=== PATIENT | female | born 1955 | race Two or more races ===

== ENCOUNTER 2017-09-06 09:11 | Outpatient (CLI) | payer BC, OTHER | END 2017-09-06 11:11 | disposition home or self-care (01) | LOC: ECT 09:11 | DX: F33.2 Major depressive disorder, recurrent severe without psychotic features (principal); E03.9 Hypothyroidism, unspecified; M81.0 Age-related osteoporosis without current pathological fracture; Z88.2 Allergy status to sulfonamides ==

== ENCOUNTER 2017-10-07 06:22 | Outpatient (RCR) | payer OTHER ==
[~2017-10-07] VITALS: Ht 165.1 cm; Wt 81.6 kg
[2017-10-07] MEDS ORDERED: Succinylcholine 20mg/ml 10ml vial ONE (06:23)
[2017-10-07] MEDS ORDERED: NS 500ML ONE (06:23)
[2017-10-07] MEDS ORDERED: Ketorolac 60mg Inj ONE (06:23)
[2017-10-07] MEDS ORDERED: Excedrin Migraine tab ONE (06:23)
[2017-10-07] MEDS ORDERED: Methohexital Sodium Syr 100mg/10ml IVP ONE (06:23)
[2017-10-07 08:04] VITALS: BP 136/84
[2017-10-07] MEDS ORDERED: Sodium Chloride 500ML 500 ML IV ONE (08:17)
[2017-10-07] MEDS ORDERED: Excedrin Migraine tab ORAL PRN (08:17)
[2017-10-07 08:20] VITALS: BP 126/64
[2017-10-07 08:25] VITALS: BP 125/62
[2017-10-07 08:30] VITALS: BP 136/72
[2017-10-07 08:35] VITALS: BP 140/74
[2017-10-07 11:14] VITALS: BP 136/84
[2017-10-10] VITALS (7 sets, daily range): BP systolic 117–143; BP diastolic 63–84
[2017-10-10] MEDS ORDERED: NS 500ML ONE (07:00)
[2017-10-10] MEDS ORDERED: Succinylcholine 20mg/ml 10ml vial ONE (07:00)
[2017-10-10] MEDS ORDERED: Excedrin Migraine tab ONE (07:00)
[2017-10-10] MEDS ORDERED: Ketorolac 60mg Inj ONE (07:00)
[2017-10-10] MEDS ORDERED: Methohexital Sodium Syr 100mg/10ml IVP ONE (07:00)
[2017-10-10] MEDS ORDERED: Sodium Chloride 500ML 500 ML IV ONE (09:11)
[2017-10-12] MEDS ORDERED: Excedrin Migraine tab ONE (07:00)
[2017-10-12] MEDS ORDERED: Succinylcholine 20mg/ml 10ml vial ONE (07:00)
[2017-10-12] MEDS ORDERED: Methohexital Sodium Syr 100mg/10ml IVP ONE (07:00)
[2017-10-12] MEDS ORDERED: Ketorolac 60mg Inj ONE (07:00)
[2017-10-12] MEDS ORDERED: NS 500ML ONE (07:00)
[2017-10-12 07:46] VITALS: BP 147/91
[2017-10-12] MEDS ORDERED: Excedrin Migraine tab ORAL PRN (07:58)
[2017-10-12] MEDS ORDERED: Sodium Chloride 500ML 500 ML IV ONE (07:58)
[2017-10-12] MEDS ORDERED: Atropine Sulfate 0.4mg/ml inj IVP PRN (07:58)
[2017-10-12 08:00] VITALS: BP 133/48
[2017-10-12 08:05] VITALS: BP 136/83
[2017-10-12 08:10] VITALS: BP 144/58
[2017-10-17] MEDS ORDERED: Succinylcholine 20mg/ml 10ml vial ONE (06:00)
[2017-10-17] MEDS ORDERED: NS 500ML ONE (06:00)
[2017-10-17] MEDS ORDERED: Methohexital Sodium Syr 100mg/10ml IVP ONE (06:00)
[2017-10-17] MEDS ORDERED: Ketorolac 60mg Inj ONE (06:00)
[2017-10-17] MEDS ORDERED: Excedrin Migraine tab ONE (06:00)
[2017-10-17 07:46] VITALS: BP 151/85
[2017-10-17] MEDS ORDERED: Excedrin Migraine tab ORAL PRN (08:00)
[2017-10-17] MEDS ORDERED: Sodium Chloride 500ML 500 ML IV ONE (08:00)
[2017-10-17 08:05] VITALS: BP 124/62
[2017-10-17 08:10] VITALS: BP 123/55
[2017-10-17 08:15] VITALS: BP 116/38
[2017-10-17 08:20] VITALS: BP 108/46
[2017-10-19] MEDS ORDERED: NS 500ML ONE (07:00)
[2017-10-19] MEDS ORDERED: Succinylcholine 20mg/ml 10ml vial ONE (07:00)
[2017-10-19] MEDS ORDERED: Ketorolac 60mg Inj ONE (07:00)
[2017-10-19] MEDS ORDERED: Excedrin Migraine tab ONE (07:00)
[2017-10-19] MEDS ORDERED: Methohexital Sodium Syr 100mg/10ml IVP ONE (07:00)
[2017-10-19 08:04] VITALS: BP 132/91
[2017-10-19 08:15] VITALS: BP 140/71
[2017-10-19] MEDS ORDERED: Excedrin Migraine tab ORAL PRN (08:19)
[2017-10-19] MEDS ORDERED: Sodium Chloride 500ML 500 ML IV ONE (08:19)
[2017-10-19 08:20] VITALS: BP 148/70
[2017-10-19 08:25] VITALS: BP 150/71
[2017-10-19 08:30] VITALS: BP 150/71
[2017-10-19 08:35] VITALS: BP 150/70
[2017-10-21] MEDS ORDERED: Methohexital Sodium Syr 100mg/10ml IVP ONE (07:00)
[2017-10-21] MEDS ORDERED: Succinylcholine 20mg/ml 10ml vial ONE (07:00)
[2017-10-21] MEDS ORDERED: Excedrin Migraine tab ONE (07:00)
[2017-10-21] MEDS ORDERED: Ketorolac 60mg Inj ONE (07:00)
[2017-10-21] MEDS ORDERED: NS 500ML ONE (07:00)
[2017-10-21 08:03] VITALS: BP 137/82
[2017-10-21] MEDS ORDERED: Excedrin Migraine tab ORAL PRN (08:17)
[2017-10-21] MEDS ORDERED: Sodium Chloride 500ML 500 ML IV ONE (08:17)
[2017-10-21 08:20] VITALS: BP 127/66
[2017-10-21 08:25] VITALS: BP 130/64
[2017-10-21 08:30] VITALS: BP 128/63
[2017-10-21 08:35] VITALS: BP 141/53
[2017-10-24 07:36] VITALS: BP 138/87
[2017-10-24 07:52] VITALS: BP 137/87
[2017-10-24] MEDS ORDERED: Excedrin Migraine tab ORAL PRN (07:52)
[2017-10-24] MEDS ORDERED: Sodium Chloride 500ML 500 ML IV ONE (07:52)
[2017-10-24 07:57] VITALS: BP 122/86
[2017-10-24] MEDS ORDERED: Methohexital Sodium Syr 100mg/10ml IVP ONE (08:00)
[2017-10-24] MEDS ORDERED: Ketorolac 60mg Inj ONE (08:00)
[2017-10-24] MEDS ORDERED: Succinylcholine 20mg/ml 10ml vial ONE (08:00)
[2017-10-24] MEDS ORDERED: Excedrin Migraine tab ONE (08:00)
[2017-10-24] MEDS ORDERED: NS 500ML ONE (08:00)
[2017-10-24 08:02] VITALS: BP 139/67
[2017-10-24 08:07] VITALS: BP 127/65
[2017-10-26] MEDS ORDERED: Ketorolac 60mg Inj ONE (06:00)
[2017-10-26] MEDS ORDERED: Methohexital Sodium Syr 100mg/10ml IVP ONE (06:00)
[2017-10-26] MEDS ORDERED: Succinylcholine 20mg/ml 10ml vial ONE (06:00)
[2017-10-26] MEDS ORDERED: Excedrin Migraine tab ONE (06:00)
[2017-10-26 07:18] VITALS: BP 142/76
[2017-10-26] MEDS ORDERED: Excedrin Migraine tab ORAL PRN (07:30)
[2017-10-26] MEDS ORDERED: Sodium Chloride 500ML 500 ML IV ONE (07:30)
[2017-10-26 07:35] VITALS: BP 116/56
[2017-10-26 07:40] VITALS: BP 116/56
[2017-10-26 07:45] VITALS: BP 122/61
[2017-10-26 07:50] VITALS: BP 112/86
[2017-10-28] MEDS ORDERED: Methohexital Sodium Syr 100mg/10ml IVP ONE (08:00)
[2017-10-28] MEDS ORDERED: Ketorolac 60mg Inj ONE (08:00)
[2017-10-28] MEDS ORDERED: NS 500ML ONE (08:00)
[2017-10-28] MEDS ORDERED: Excedrin Migraine tab ONE (08:00)
[2017-10-28] MEDS ORDERED: Succinylcholine 20mg/ml 10ml vial ONE (08:00)
[2017-10-28 08:03] VITALS: BP 136/77
[2017-10-28] MEDS ORDERED: Excedrin Migraine tab ORAL PRN (08:18)
[2017-10-28] MEDS ORDERED: Sodium Chloride 500ML 500 ML IV ONE (08:18)
[2017-10-28 08:20] VITALS: BP 132/80
[2017-10-28 08:25] VITALS: BP 118/77
[2017-10-28 08:30] VITALS: BP 135/54
[2017-10-28 08:35] VITALS: BP 126/56
== END 2017-11-02 | disposition home or self-care (01) ==
LOC: ECT 06:22
DX: F33.2 Major depressive disorder, recurrent severe without psychotic features (principal); E03.9 Hypothyroidism, unspecified; M81.0 Age-related osteoporosis without current pathological fracture
CPT/HCPCS: 90870; J0330; J7040

== ENCOUNTER 2017-11-04 05:05 | Outpatient (RCR) | payer OTHER ==
[~2017-11-04] VITALS: Ht 165.1 cm; Wt 81.6 kg
[2017-11-04] MEDS ORDERED: Ketorolac 60mg Inj ONE (05:06)
[2017-11-04] MEDS ORDERED: Excedrin Migraine tab ONE (05:06)
[2017-11-04] MEDS ORDERED: NS 500ML ONE (05:06)
[2017-11-04] MEDS ORDERED: Succinylcholine 20mg/ml 10ml vial ONE (05:06)
[2017-11-04] MEDS ORDERED: Midazolam 2mg/2ml Inj ONE (05:06)
[2017-11-04 07:40] VITALS: BP 129/78
[2017-11-04] MEDS ORDERED: Atropine Sulfate 0.4mg/ml inj IVP PRN (08:03)
[2017-11-04] MEDS ORDERED: Sodium Chloride 500ML 500 ML IV ONE (08:03)
[2017-11-04] MEDS ORDERED: Excedrin Migraine tab ORAL PRN (08:03)
[2017-11-04 08:05] VITALS: BP 103/38
[2017-11-04 08:10] VITALS: BP 107/46
[2017-11-04 08:15] VITALS: BP 119/63
[2017-11-04 08:20] VITALS: BP 119/63
[2017-11-04 08:25] VITALS: BP 124/69
[2017-11-09] MEDS ORDERED: Excedrin Migraine tab ONE (07:00)
[2017-11-09] MEDS ORDERED: Methohexital Sodium Syr 100mg/10ml IVP ONE (07:00)
[2017-11-09] MEDS ORDERED: Ketorolac 60mg Inj ONE (07:00)
[2017-11-09] MEDS ORDERED: NS 500ML ONE (07:00)
[2017-11-09] MEDS ORDERED: Succinylcholine 20mg/ml 10ml vial ONE (07:00)
[2017-11-09] MEDS ORDERED: Midazolam 2mg/2ml Inj ONE (07:00)
[2017-11-09] MEDS ORDERED: Sodium Chloride 500ML 500 ML IV ONE (08:06)
[2017-11-09] MEDS ORDERED: Excedrin Migraine tab ORAL PRN (08:06)
[2017-11-09 08:10] VITALS: BP 104/56
[2017-11-09 08:15] VITALS: BP 105/49
[2017-11-09 08:20] VITALS: BP 102/54
[2017-11-09 08:25] VITALS: BP 103/54
[2017-11-09 08:35] VITALS: BP 130/62
[2017-11-18] MEDS ORDERED: NS 500ML ONE (07:00)
[2017-11-18] MEDS ORDERED: Methohexital Sodium Syr 100mg/10ml IVP ONE (07:00)
[2017-11-18] MEDS ORDERED: Succinylcholine 20mg/ml 10ml vial ONE (07:00)
[2017-11-18] MEDS ORDERED: Excedrin Migraine tab ONE (07:00)
[2017-11-18] MEDS ORDERED: Ketorolac 60mg Inj ONE (07:00)
[2017-11-18] MEDS ORDERED: Midazolam 2mg/2ml Inj ONE (07:00)
[2017-11-18 07:42] VITALS: BP 140/99
[2017-11-18] MEDS ORDERED: Excedrin Migraine tab ORAL PRN (07:59)
[2017-11-18] MEDS ORDERED: Sodium Chloride 500ML 500 ML IV ONE (07:59)
[2017-11-18 08:00] VITALS: BP 114/67
[2017-11-18 08:05] VITALS: BP 115/63
[2017-11-18 08:10] VITALS: BP 112/62
[2017-11-18 08:15] VITALS: BP 116/62
[2017-11-18 08:20] VITALS: BP 108/55
[2017-11-30] MEDS ORDERED: Methohexital Sodium Syr 100mg/10ml IVP ONE (08:00)
[2017-11-30] MEDS ORDERED: Midazolam 2mg/2ml Inj ONE (08:00)
[2017-11-30] MEDS ORDERED: Excedrin Migraine tab ONE (08:00)
[2017-11-30] MEDS ORDERED: Succinylcholine 20mg/ml 10ml vial ONE (08:00)
[2017-11-30] MEDS ORDERED: Ketorolac 60mg Inj ONE (08:00)
[2017-11-30] MEDS ORDERED: NS 500ML ONE (08:00)
[2017-11-30 08:45] VITALS: BP 126/84
[2017-11-30] MEDS ORDERED: Sodium Chloride 500ML 500 ML IV ONE (09:06)
[2017-11-30 09:10] VITALS: BP 111/63
[2017-11-30 09:15] VITALS: BP 116/50
[2017-11-30 09:20] VITALS: BP 108/66
[2017-11-30 09:25] VITALS: BP 138/61
== END 2017-12-03 | disposition home or self-care (01) ==
LOC: ECT 05:05
DX: F33.2 Major depressive disorder, recurrent severe without psychotic features (principal)
CPT/HCPCS: 90870; J0330; J2250; J7040

== ENCOUNTER 2017-12-19 07:00 | Outpatient (RCR) | payer OTHER ==
[~2017-12-19] VITALS: Ht 165.1 cm; Wt 81.6 kg
[2017-12-19] MEDS ORDERED: Succinylcholine 20mg/ml 10ml vial ONE (07:01)
[2017-12-19] MEDS ORDERED: Midazolam 2mg/2ml Inj ONE (07:01)
[2017-12-19] MEDS ORDERED: Excedrin Migraine tab ONE (07:01)
[2017-12-19] MEDS ORDERED: Ketorolac 60mg Inj ONE (07:01)
[2017-12-19] MEDS ORDERED: NS 500ML ONE (07:01)
[2017-12-19] MEDS ORDERED: Methohexital Sodium Syr 100mg/10ml IVP ONE (07:01)
[2017-12-21] MEDS ORDERED: NS 500ML ONE (07:00)
[2017-12-21] MEDS ORDERED: Succinylcholine 20mg/ml 10ml vial ONE (07:00)
[2017-12-21] MEDS ORDERED: Ketorolac 60mg Inj ONE (07:00)
[2017-12-21] MEDS ORDERED: Methohexital Sodium Syr 100mg/10ml IVP ONE (07:00)
[2017-12-21] MEDS ORDERED: Excedrin Migraine tab ONE (07:00)
[2017-12-21] MEDS ORDERED: Midazolam 2mg/2ml Inj ONE (07:00)
[2017-12-21 07:52] VITALS: BP 153/90
[2017-12-21] MEDS ORDERED: Sodium Chloride 500ML 500 ML IV ONE (08:09)
[2017-12-21] MEDS ORDERED: Excedrin Migraine tab ORAL PRN (08:09)
[2017-12-21 08:10] VITALS: BP 119/64
[2017-12-21 08:15] VITALS: BP 126/64
[2017-12-21 08:20] VITALS: BP 116/57
[2017-12-21 08:25] VITALS: BP 127/79
[2017-12-23 08:52] VITALS: BP 138/92
[2017-12-23 09:13] VITALS: BP 120/59
[2017-12-23] MEDS ORDERED: Sodium Chloride 500ML 500 ML IV ONE (09:13)
[2017-12-23] MEDS ORDERED: Excedrin Migraine tab ORAL PRN (09:13)
[2017-12-23] MEDS ORDERED: Atropine Sulfate 0.4mg/ml inj IVP PRN (09:13)
[2017-12-23 09:18] VITALS: BP 113/63
[2017-12-23 09:23] VITALS: BP 112/60
[2017-12-23 09:28] VITALS: BP 112/65
[2017-12-28 07:57] VITALS: BP 145/84
[2017-12-28] MEDS ORDERED: NS 500ML ONE (08:00)
[2017-12-28] MEDS ORDERED: Ketorolac 60mg Inj ONE (08:00)
[2017-12-28] MEDS ORDERED: Excedrin Migraine tab ONE (08:00)
[2017-12-28] MEDS ORDERED: Succinylcholine 20mg/ml 10ml vial ONE (08:00)
[2017-12-28] MEDS ORDERED: Midazolam 2mg/2ml Inj ONE (08:00)
[2017-12-28] MEDS ORDERED: Methohexital Sodium Syr 100mg/10ml IVP ONE (08:00)
[2017-12-28] MEDS ORDERED: Sodium Chloride 500ML 500 ML IV ONE (08:12)
[2017-12-28] MEDS ORDERED: Excedrin Migraine tab ORAL PRN (08:12)
[2017-12-28 08:15] VITALS: BP 115/48
[2017-12-28 08:20] VITALS: BP 115/48
[2017-12-28 08:25] VITALS: BP 115/48
[2017-12-28 08:30] VITALS: BP 127/80
[2017-12-28 08:35] VITALS: BP 151/80
== END 2018-01-02 | disposition home or self-care (01) ==
LOC: ECT 07:00
DX: F33.2 Major depressive disorder, recurrent severe without psychotic features (principal)
CPT/HCPCS: 90870; J0330; J2250; J7040

== ENCOUNTER 2018-01-09 07:01 | Outpatient (RCR) | payer OTHER ==
[~2018-01-09] VITALS: Ht 165.1 cm; Wt 81.8 kg
[2018-01-09] MEDS ORDERED: Succinylcholine 20mg/ml 10ml vial ONE ×2 (07:02)
[2018-01-09] MEDS ORDERED: Ketorolac 60mg Inj ONE ×2 (07:02)
[2018-01-09] MEDS ORDERED: Methohexital Sodium Syr 100mg/10ml IVP ONE (07:02)
[2018-01-09] MEDS ORDERED: Midazolam 2mg/2ml Inj ONE ×2 (07:02)
[2018-01-09] MEDS ORDERED: Excedrin Migraine tab ONE ×2 (07:02)
[2018-01-09] MEDS ORDERED: Methohexital Sodium 500mg Vial IVP ONE (07:02)
[2018-01-09] MEDS ORDERED: NS 500ML ONE ×2 (07:02)
[2018-01-09 07:35] VITALS: BP 143/85
[2018-01-09] MEDS ORDERED: Sodium Chloride 500ML 500 ML IV ONE (07:51)
[2018-01-09] MEDS ORDERED: Excedrin Migraine tab ORAL PRN (07:51)
[2018-01-09 07:55] VITALS: BP 105/60
[2018-01-09 08:00] VITALS: BP 103/59
[2018-01-09 08:05] VITALS: BP 107/62
[2018-01-09 08:10] VITALS: BP 110/54
[2018-01-25 07:38] VITALS: BP 133/90
[2018-01-25 08:03] VITALS: BP 87/70
[2018-01-25] MEDS ORDERED: Atropine Sulfate 0.4mg/ml inj IVP PRN (08:03)
[2018-01-25] MEDS ORDERED: Sodium Chloride 500ML 500 ML IV ONE (08:03)
[2018-01-25 08:08] VITALS: BP 95/53
[2018-01-25 08:13] VITALS: BP 86/50
[2018-01-25 08:18] VITALS: BP 94/57
[2018-01-25 08:23] VITALS: BP 101/54
[2018-02-01] MEDS ORDERED: Midazolam 2mg/2ml Inj ONE (07:00)
[2018-02-01] MEDS ORDERED: Methohexital Sodium Syr 100mg/10ml IVP ONE (07:00)
[2018-02-01] MEDS ORDERED: Excedrin Migraine tab ONE (07:00)
[2018-02-01] MEDS ORDERED: Succinylcholine 20mg/ml 10ml vial ONE (07:00)
[2018-02-01] MEDS ORDERED: Ketorolac 60mg Inj ONE (07:00)
[2018-02-01] MEDS ORDERED: NS 500ML ONE (07:00)
[2018-02-01 07:01] VITALS: BP 146/83
[2018-02-01] MEDS ORDERED: Excedrin Migraine tab ORAL PRN (07:16)
[2018-02-01] MEDS ORDERED: Sodium Chloride 500ML 500 ML IV ONE (07:16)
[2018-02-01 07:20] VITALS: BP 102/44
[2018-02-01 07:25] VITALS: BP 93/58
[2018-02-01 07:30] VITALS: BP 92/49
[2018-02-01 07:35] VITALS: BP 113/44
== END 2018-02-02 | disposition home or self-care (01) ==
LOC: ECT 07:01
DX: F33.2 Major depressive disorder, recurrent severe without psychotic features (principal)
CPT/HCPCS: 90870; J0330; J2250; J3490; J7040

== ENCOUNTER 2018-02-13 07:53 | Outpatient (RCR) | payer OTHER ==
[~2018-02-13] VITALS: Ht 165.1 cm; Wt 81.8 kg
[2018-02-13 07:29] VITALS: BP 119/81
[2018-02-13 07:50] VITALS: BP 101/56
[~2018-02-13 07:53] MED LIST: Atropine Sulfate 0.4mg/ml inj IVP PRN; Excedrin Migraine tab ORAL PRN; Sodium Chloride 500ML 500 ML IV ONE
[2018-02-13] MEDS ORDERED: Methohexital Sodium Syr 100mg/10ml IVP ONE (07:54)
[2018-02-13] MEDS ORDERED: Ketorolac 60mg Inj ONE (07:54)
[2018-02-13] MEDS ORDERED: NS 500ML ONE (07:54)
[2018-02-13] MEDS ORDERED: Midazolam 2mg/2ml Inj ONE (07:54)
[2018-02-13] MEDS ORDERED: Succinylcholine 20mg/ml 10ml vial ONE (07:54)
[2018-02-13] MEDS ORDERED: Excedrin Migraine tab ONE (07:54)
[2018-02-13 07:55] VITALS: BP 116/56
[2018-02-13 08:00] VITALS: BP 130/36
[2018-02-13 08:05] VITALS: BP 104/54
== END 2018-03-04 | disposition home or self-care (01) ==
LOC: ECT 07:53
DX: F33.2 Major depressive disorder, recurrent severe without psychotic features (principal)
CPT/HCPCS: 90870; J0330; J2250; J7040

== ENCOUNTER 2018-03-13 05:35 | Outpatient (RCR) | payer OTHER ==
[~2018-03-13] VITALS: Ht 165.1 cm; Wt 81.6 kg
[2018-03-15] MEDS ORDERED: Midazolam 2mg/2ml Inj ONE (06:00)
[2018-03-15] MEDS ORDERED: NS 500ML ONE (06:00)
[2018-03-15] MEDS ORDERED: Ketorolac 60mg Inj ONE (06:00)
[2018-03-15] MEDS ORDERED: Excedrin Migraine tab ONE (06:00)
[2018-03-15] MEDS ORDERED: Succinylcholine 20mg/ml 10ml vial ONE (06:00)
[2018-03-15] MEDS ORDERED: Excedrin Migraine tab ORAL PRN (07:46)
[2018-03-15] MEDS ORDERED: Sodium Chloride 500ML 500 ML IV ONE (07:46)
[2018-03-15 07:50] VITALS: BP 107/49
[2018-03-15 07:55] VITALS: BP 106/56
[2018-03-15 08:00] VITALS: BP 113/58
[2018-03-15 08:05] VITALS: BP 121/72
[2018-03-15 08:13] VITALS: BP 123/72
[2018-03-20] MEDS ORDERED: Norco 5mg/325mg tab ONE (08:00)
[2018-03-20] MEDS ORDERED: Succinylcholine 20mg/ml 10ml vial ONE (08:00)
[2018-03-20] MEDS ORDERED: NS 500ML ONE (08:00)
[2018-03-20] MEDS ORDERED: Methohexital Sodium Syr 100mg/10ml IVP ONE (08:00)
== END 2018-04-04 | disposition home or self-care (01) ==
LOC: ECT 05:35
DX: F33.2 Major depressive disorder, recurrent severe without psychotic features (principal)
CPT/HCPCS: 90870; J0330; J2250; J3360; J7040

== ENCOUNTER 2018-04-10 05:23 | Outpatient (RCR) | payer OTHER ==
[~2018-04-10] VITALS: Ht 30.5 cm; Wt 0.5 kg
[2018-04-10] MEDS ORDERED: Methohexital Sodium Syr 100mg/10ml IVP ONE (05:24)
[2018-04-10] MEDS ORDERED: NS 500ML ONE (05:24)
[2018-04-10] MEDS ORDERED: Midazolam 2mg/2ml Inj ONE (05:24)
[2018-04-10] MEDS ORDERED: Succinylcholine 20mg/ml 10ml vial ONE (05:24)
[2018-04-10] MEDS ORDERED: Excedrin Migraine tab ONE (05:24)
[2018-04-10] MEDS ORDERED: Ketorolac 60mg Inj ONE (05:24)
[2018-04-10 07:59] VITALS: BP 148/81
[2018-04-10] MEDS ORDERED: Excedrin Migraine tab ORAL PRN (08:28)
[2018-04-10] MEDS ORDERED: Sodium Chloride 500ML 500 ML IV ONE (08:28)
[2018-04-10] MEDS ORDERED: Atropine Sulfate 0.4mg/ml inj IVP PRN (08:28)
[2018-04-10 08:30] VITALS: BP 103/57
[2018-04-10 08:35] VITALS: BP 107/51
[2018-04-10 08:40] VITALS: BP 113/41
[2018-04-10 08:45] VITALS: BP 103/55
== END 2018-05-05 | disposition home or self-care (01) ==
LOC: ECT 05:23
DX: F33.2 Major depressive disorder, recurrent severe without psychotic features (principal)
CPT/HCPCS: 90870; J0330; J2250; J7040

== ENCOUNTER 2018-05-10 06:48 | Outpatient (RCR) | payer OTHER ==
[~2018-05-10] VITALS: Ht 31.5 cm; Wt 0.5 kg
[2018-05-10] MEDS ORDERED: Excedrin Migraine tab ONE (06:49)
[2018-05-10] MEDS ORDERED: NS 500ML ONE (06:49)
[2018-05-10] MEDS ORDERED: Ketorolac 60mg Inj IM ONE (06:49)
[2018-05-10] MEDS ORDERED: Succinylcholine 20mg/ml 10ml vial ONE (06:49)
[2018-05-10] MEDS ORDERED: Midazolam 2mg/2ml Inj ONE (06:49)
[2018-05-10] MEDS ORDERED: Methohexital Sodium Syr 100mg/10ml IVP ONE (06:49)
[2018-05-10 07:43] VITALS: BP 146/86
[2018-05-10] MEDS ORDERED: Sodium Chloride 500ML 500 ML IV ONE (08:04)
[2018-05-10] MEDS ORDERED: Excedrin Migraine tab ORAL PRN (08:04)
[2018-05-10 08:05] VITALS: BP 133/66
[2018-05-10 08:10] VITALS: BP 121/69
[2018-05-10 08:15] VITALS: BP 128/70
[2018-05-10 08:20] VITALS: BP 131/86
== END 2018-06-04 | disposition home or self-care (01) ==
LOC: ECT 06:48
DX: F33.2 Major depressive disorder, recurrent severe without psychotic features (principal)
CPT/HCPCS: 90870; J0330; J2250; J7040

== ENCOUNTER 2018-06-07 06:25 | Outpatient (RCR) | payer OTHER ==
[~2018-06-07] VITALS: Ht 30.5 cm; Wt 0.5 kg
[2018-06-07] MEDS ORDERED: Midazolam 2mg/2ml Inj ONE (06:26)
[2018-06-07] MEDS ORDERED: NS 500ML ONE (06:26)
[2018-06-07] MEDS ORDERED: Excedrin Migraine tab ONE (06:26)
[2018-06-07] MEDS ORDERED: Ketorolac 60mg Inj IM ONE (06:26)
[2018-06-07] MEDS ORDERED: Methohexital Sodium Syr 100mg/10ml IVP ONE (06:26)
[2018-06-07] MEDS ORDERED: Succinylcholine 20mg/ml 10ml vial ONE (06:26)
[2018-06-07 07:33] VITALS: BP 150/95
[2018-06-07] MEDS ORDERED: Excedrin Migraine tab ORAL PRN (07:49)
[2018-06-07] MEDS ORDERED: Sodium Chloride 500ML 500 ML IV ONE (07:49)
[2018-06-07 07:50] VITALS: BP 123/62
[2018-06-07 07:55] VITALS: BP 127/79
[2018-06-07 08:00] VITALS: BP 134/101
[2018-06-07 08:05] VITALS: BP 137/92
== END 2018-07-05 | disposition home or self-care (01) ==
LOC: ECT 06:25
DX: F33.2 Major depressive disorder, recurrent severe without psychotic features (principal)
CPT/HCPCS: 90870; J0330; J2250; J7040

== ENCOUNTER 2018-07-07 04:42 | Outpatient (RCR) | payer OTHER ==
[~2018-07-07] VITALS: Ht 30.5 cm; Wt 0.5 kg
[2018-07-07] MEDS ORDERED: Excedrin tab (non formulary) ONE (04:43)
[2018-07-07] MEDS ORDERED: Succinylcholine 20mg/ml 10ml vial ONE (04:43)
[2018-07-07] MEDS ORDERED: Midazolam 2mg/2ml Inj ONE (04:43)
[2018-07-07] MEDS ORDERED: NS 500ML ONE (04:43)
[2018-07-07] MEDS ORDERED: Ketorolac 60mg Inj IM ONE (04:43)
[2018-07-07] MEDS ORDERED: Methohexital Sodium 500mg Vial IVP ONE (04:43)
[2018-07-07 07:32] VITALS: BP 143/51
[2018-07-07] MEDS ORDERED: Sodium Chloride 500ML 500 ML IV ONE (08:03)
[2018-07-07] MEDS ORDERED: Excedrin Migraine tab ORAL PRN (08:03)
[2018-07-07] MEDS ORDERED: Atropine Sulfate 0.4mg/ml inj IVP PRN (08:03)
[2018-07-07 08:05] VITALS: BP 92/53
[2018-07-07 08:10] VITALS: BP 92/53
[2018-07-07 08:15] VITALS: BP 100/49
[2018-07-07 08:20] VITALS: BP 117/68
[2018-08-04 07:39] VITALS: BP 141/102
[2018-08-04] MEDS ORDERED: Excedrin Migraine tab ORAL PRN (07:52)
[2018-08-04] MEDS ORDERED: Sodium Chloride 500ML 500 ML IV ONE (07:52)
[2018-08-04 07:55] VITALS: BP 106/50
[2018-08-04 08:00] VITALS: BP 100/51
[2018-08-04 08:05] VITALS: BP 94/58
[2018-08-04 08:10] VITALS: BP 108/66
[2018-08-04] MEDS ORDERED: Excedrin Migraine tab ONE (12:02)
[2018-08-04] MEDS ORDERED: Ketorolac 60mg Inj IM ONE (12:02)
[2018-08-04] MEDS ORDERED: Midazolam 2mg/2ml Inj ONE (12:02)
[2018-08-04] MEDS ORDERED: Methohexital Sodium Syr 100mg/10ml IVP ONE (12:02)
[2018-08-04] MEDS ORDERED: NS 500ML ONE (12:02)
[2018-08-04] MEDS ORDERED: Succinylcholine 20mg/ml 10ml vial ONE (12:02)
== END 2018-08-04 | disposition home or self-care (01) ==
LOC: ECT 04:42
DX: F33.2 Major depressive disorder, recurrent severe without psychotic features (principal)
CPT/HCPCS: 90870; J0330; J2250; J3490; J7040